=== PATIENT | female | born 1940 | race American Indian/Alaskan Native ===

== ENCOUNTER 2019-01-03 13:40 | Outpatient (CLI) | payer MEDICARE ==
[2019-01-03 15:37] LABS: Blood Urea Nitrogen 11 mg/dL (7-17)
--- NOTE | 2019-01-03 18:47 | Magnetic Resonance Report ---
MRI BRAIN with and without IV contrast. 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 TECHNIQUE: Multiplanar, multisequence MR images of the brain were obtained. COMPARISON: None available. FINDINGS: BRAIN / INTRACRANIAL CONTENTS: The motion degrades image quality. However, the patient is status post left suboccipital craniotomy with postsurgical changes involving underlying the left cerebellum. The re is nodular enhancement to along the superior anterior surgical bed measuring approximately 2.1 cm AP by 1.8 similar transverse by 1.0 cm sagittally and greatest dimensions at. This finding may be on a postoperative basis or reflect residual disease, correlation would be needed regarding surgical his tory. Continued follow-up would be recommended to further characterize this finding and ensure resolu tion of the enhancement. The findings are indicative of previous right frontal ventricular shunt placement. The ventricular sy stem is within upper limits of normal in size on the current exam given the mild degree of cerebral a trophy. No extra-axial fluid collections are identified at. 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 The diffusion imaging reveals no clear evidence of acute infarction. CRANIOCERVICAL JUNCTION: As above. VASCULAR FLOW-VOIDS: The distal internal carotid arteries and vertebrobasilar system grossly demonstr ate appropriate signal void set. ORBITS: The patient is status post left orbital enucleation. SINUSES / MASTOIDS: There are postsurgical changes involving paranasal sinuses which otherwise are pn eumatized. The mastoid air cells are unremarkable. ADDITIONAL FINDINGS: None. IMPRESSION: 1. Status post left suboccipital craniectomy with postsurgical changes and anterior nodular enhanceme nt involving left cerebellum as detailed above. 2. There is extensive microvascular angiopathy without evidence of acute infarction. 3. There appear to be previous right-sided ventricular shunt set. The ventricular system is within up per limits of normal in size on the solitary current exam. Signer Name: Boubacar Quintanilla MD Signed: 01/03/2019 6:42 PM Workstation Name: [id number]
== END 2019-01-03 13:41 | disposition home or self-care (01) ==
LOC: MRI 13:40
PROVIDERS: ATTEND Internal Medicine Hematology
DX: C34.11 Malignant neoplasm of upper lobe, right bronchus or lung (principal)
CPT/HCPCS: 36415; 70553; 82565; 84520; A9577

== ENCOUNTER 2019-01-06 10:56 | Outpatient (CLI) | payer MEDICARE ==
--- NOTE | 2019-01-06 16:11 | PET Report ---
PET/CT HISTORY: C34.11. Restaging of lung cancer TECHNIQUE: The patient's fasting blood glucose was 98. The patient weighed 142 lbs. The patient wa s injected with 13.3 mCi of FDG in the right hand at 1136 hours and imaging was started at 1231 hours . The patient was imaged from the skull base to the thighs. All CT scans at this location are perfor med using CT dose reduction for ALARA by means of automated exposure control. Images were reviewed on a workstation. COMPARISON: No relevant comparison at this facility FINDINGS: IMAGED BRAIN: [Physiologic FDG uptake] NECK: [Physiologic FDG uptake] CHEST WALL: [Physiologic FDG uptake] MEDIASTINUM: [Physiologic FDG uptake] LUNGS: [Physiologic FDG uptake]. Partial right pneumonectomy changes with scarring in the right uppe r lung is noted. Underlying emphysematous changes. HEPATOBILIARY: [Physiologic FDG uptake]. Liver SUV measures 3.9. PANCREAS: [Physiologic FDG uptake SPLEEN: [Physiologic FDG uptake] KIDNEYS/BLADDER: [Physiologic FDG uptake] ADRENAL GLANDS: [Physiologic FDG uptake] GI/MESENTERY: [Physiologic FDG uptake] PELVIC VISCERA: [Physiologic FDG uptake]. Hysterectomy changes are noted. LYMPH NODES: [Physiologic FDG uptake] OSSEOUS STRUCTURES: [Physiologic FDG uptake]. Osteopenia. No suspicious bony lesions. ADDITIONAL FINDINGS: [None] IMPRESSION: Negative PET CT. No evidence for disease recurrence or metastasis. Signer Name: Bryan Webb Jr, MD Signed: 01/06/2019 4:07 PM Workstation Name: [id number]
== END 2019-01-06 10:57 | disposition home or self-care (01) ==
LOC: PET 10:56
PROVIDERS: ATTEND Internal Medicine Hematology
DX: C34.11 Malignant neoplasm of upper lobe, right bronchus or lung (principal)
CPT/HCPCS: 78815; 82962; A9552

== ENCOUNTER 2019-04-21 09:44 | Outpatient (CLI) | payer MEDICARE, OTHER ==
--- NOTE | 2019-04-21 15:21 | PET Report ---
PET/CT HISTORY: C34.11. Lung cancer restaging exam TECHNIQUE: The patient's fasting blood glucose was 91. The patient weighed 155 lbs. The patient wa s injected with 14.6 mCi of FDG in the indwelling right-sided Port-A-Cath at 11:07 AM and imaging was started at 12:21 PM. The patient was imaged from the skull base to the thighs. COMPARISON: PET scan from 01/06/2019 FINDINGS: FDG findings: No abnormal FDG uptake identified. Non-FDG findings: No new significant incidental findings in the chest, abdomen, or pelvis. Postopera tive change again seen in the right upper lobe region. Old postoperative change also again seen in th e colon. IMPRESSION: Stable exam with no metastatic disease identified. Signer Name: Channing Lacy MD Signed: 04/21/2019 3:17 PM Workstation Name: [id number]
== END 2019-04-21 09:45 | disposition home or self-care (01) ==
LOC: PET 09:44
PROVIDERS: ATTEND Internal Medicine Hematology
DX: C34.11 Malignant neoplasm of upper lobe, right bronchus or lung (principal)
CPT/HCPCS: 78815; 82962; A9552; J1642